=== PATIENT | male | born 1945 ===

== ENCOUNTER 2018-04-28 14:09 | Emergency (ER) | payer MEDICARE, BC ==
[2018-04-28] MEDS ORDERED: NS 0.9% 1000 ML* 1,000 ML IV ONE (14:50)
--- NOTE | 2018-04-28 14:50 | UC ---
Nausea/Vomiting/Diarrhea HPI - HPI Summary HPI Summary: This is a 72 yo male with IDDM who presents with c/o nausea and vomiting. Symptoms started yesterday morning. He was unable to tolerate anything by mouth most of the day yesterday. He had several episodes of vomiting. Some diarrhea yesterday, none today. No associated fever or abd pain. No rash. No cough or SOB. He reports his FBG was 76 g/dl this am. He brings his glucose log with him. FBG ~130-150 last 2 days, avg is between 80 and 90 g/dl. No recent changes to medications. His has not been acutely ill. - History of Current Complaint Chief Complaint: UCGI Stated Complaint: ABDOMINAL COMPLAINT, DIZZINESS Pain Intensity: 0 - Allergies/Home Medications Allergies/Adverse Reactions: Allergies Allergy/AdvReac Type Severity Reaction Status Date / Time No Known Allergies Allergy Verified 04/28/18 14:16 Home Medications: Home Medications Atenolol/Chlorthalidone [Atenolol/Chlorthalidone 50-25 mg-] 1 tab PO DAILY 04/28 [History Confirmed 04/28/18] Bicalutamide [Casodex] 1 tab PO DAILY 04/28/18 [History Confirmed 04/28/18] Insulin Glargine,Hum.rec.anlog [Lantus Solostar 5x3 ML PENS] 96 unit SQ [History] Metformin HCl [Metformin HCl ER] 500 mg PO QID 04/28/18 [History Confirmed 04/28] Olmesartan Medoxomil 04/28/18 [History] PMH/Surg Hx/FS Hx/Imm Hx Endocrine History: Diabetes - Surgical History Surgical History: Yes Surgery Procedure, Year, and Place: HERNIA , [facility] – [place], 2001 - Family History Known Family History: Positive: Diabetes - Social History Alcohol Use: None Substance Use Type: None Smoking Status (MU): Never Smoked Tobacco Review of Systems Constitutional: Fatigue Skin: Negative Eyes: Negative ENT: Negative Respiratory: Negative Cardiovascular: Negative Gastrointestinal: Vomiting, Diarrhea, Nausea Genitourinary: Negative Motor: Negative Neurovascular: Negative Musculoskeletal: Negative Neurological: Negative Psychological: Negative Is Patient Immunocompromised?: No All Other Systems Reviewed And Are Negative: Yes Physical Exam Triage Information Reviewed: Yes Appearance: Ill-Appearing - mildly Vital Signs: Initial Vital Signs Temp 97.7 F 04/28/18 14:11 Pulse 54 04/28/18 14:11 Resp 14 04/28/18 14:11 BP 132/50 04/28/18 14:11 Pulse Ox 98 04/28/18 14:11 Vital Signs Reviewed: Yes ENT: Positive: Other - mucus membranes tacky Neck exam: Normal Neck: Positive: Supple, Nontender Respiratory Exam: Normal Respiratory: Positive: Lungs clear Cardiovascular Exam: Normal Cardiovascular: Positive: RRR Abdomen Description: Positive: Nontender, Soft, Other: - BS hypoactive Neurological Exam: Normal Psychological Exam: Normal Skin Exam: Normal Diagnostics - Laboratory Diagnostic Studies Completed/Ordered: glucose finger stick 176 g/dl. orthostatic VS - positive (>20 mmHg drop from lying to sitting with increase 10 bpm HR) Re-Evaluation - Re-Evaluation First Eval Re-Evaluation Time: 16:00 Change: Improved Comment: completed 1L NS and received Zofran Naus/Vom/Diarrhea Course/Dx - Course Course Of Treatment: 72 yo male with IDDM who presents with c/o nausea and vomiting. Orthostatic hypotension noted. Gave 1L NS and Zofran in the clinic today. Symptoms likely due to viral gastroenteritis. Recommend symptomatic care, but if symptoms do not improve suggested that he proceed to the ER for further evaluation. - Differential Dx/Diagnosis Differential Diagnoses - Male: Hepatitis, Gastroenteritis (Viral), Cholecystitis Provider Diagnoses: Suspected viral gastroenteritis Condition At Discharge: Stable Discharge - Sign-Out/Discharge Documenting (check all that apply): Discharge/Admit/Transfer - Discharge Plan Condition: Stable Disposition: HOME Prescriptions: Ondansetron [Zofran Odt] 4 mg PO Q4H #20 tab Patient Education Materials: Gastroenteritis (DC) Referrals: Carlos Bosch MD [Primary Care Provider] - If Needed Additional Instructions: Instructions: 1. Use nausea medication as needed 2. If you continue to vomit, please proceed to the ER for further evaluation 3. Maintain soft, bland diet until your symptoms completed resolve - Billing Disposition and Condition Condition: STABLE Disposition: Home
[2018-04-28 14:53] VITALS: BP 112/39
[2018-04-28] MEDS ORDERED: Ondansetron INJ* 2 MG/ML VIAL IV ONE (15:00)
[2018-04-28] MEDS ORDERED: Ondansetron ODT TAB* 4 MG SL ONE (15:00)
[2018-04-28] MEDS ORDERED: Ondansetron ODT TAB* 4 MG PO ONE (15:05)
== END 2018-04-28 16:38 | disposition home or self-care (01) ==
LOC: UCEAST 14:09
DX: R11.2 Nausea with vomiting, unspecified (principal); R19.7 Diarrhea, unspecified; R53.83 Other fatigue; E11.9 Type 2 diabetes mellitus without complications; Z79.4 Long term (current) use of insulin; Z79.84 Long term (current) use of oral hypoglycemic drugs; Z83.3 Family history of diabetes mellitus
CPT/HCPCS: 96360; 99212; A9270-GY; G0463

== ENCOUNTER 2018-08-04 11:42 | Emergency (ER) | payer MEDICARE, BC ==
[2018-08-04 12:01] VITALS: BP 149/70
--- NOTE | 2018-08-04 12:35 | UC ---
Skin Complaint HPI - HPI Summary HPI Summary: 72 y/o male PMH + for DM presents with "bump" on head for 7 days, increasing in pain, redness, unsure of how originated. no allergies, no recent abx no fever , chills. - History of Current Complaint Chief Complaint: UCSkin Time Seen by Provider: 08/04/18 12:23 Stated Complaint: SKIN COMPLAINT Hx Obtained From: Patient Onset/Duration: Gradual Onset, Lasting Days Onset Severity: Moderate Current Severity: Moderate Pain Intensity: 8 Pain Scale Used: 0-10 Numeric Location: Discrete - left scalp - Allergy/Home Medications Allergies/Adverse Reactions: Allergies Allergy/AdvReac Type Severity Reaction Status Date / Time No Known Allergies Allergy Verified 08/04/18 12:01 Review of Systems Constitutional: Negative Skin: Other - small red lump left head ENT: Negative Respiratory: Negative Cardiovascular: Negative Is Patient Immunocompromised?: No All Other Systems Reviewed And Are Negative: Yes PMH/Surg Hx/FS Hx/Imm Hx Previously Healthy: Yes Endocrine History: Diabetes - Surgical History Surgical History: Yes Surgery Procedure, Year, and Place: HERNIA , [facility] – [place], 2001. 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 - Family History Known Family History: Positive: Diabetes - Social History Alcohol Use: None Substance Use Type: None Smoking Status (MU): Never Smoked Tobacco Physical Exam Triage Information Reviewed: Yes Appearance: Well-Appearing, No Pain Distress, Well-Nourished Vital Signs: Initial Vital Signs Temp 96.6 F 08/04/18 11:55 Pulse 59 08/04/18 11:55 Resp 18 08/04/18 11:55 BP 149/70 08/04/18 11:55 Pulse Ox 98 08/04/18 11:55 Vital Signs Reviewed: Yes Eyes: Positive: Conjunctiva Clear Neck: Positive: Supple, Nontender, No Lymphadenopathy Neurological Exam: Normal Psychological Exam: Normal Skin: Positive: Other - left scalp superior ~ 2cm fluctuant area, mild tender t palpation, scab noted over area, no induration, + minimal warm Course/Dx - Course Course Of Treatment: abx given, unable to I&D due to previously drained. - Differential Diagnoses - Skin Complaint Differential Diagnoses: Abscess - Diagnoses Provider Diagnoses: cellulitis Discharge - Sign-Out/Discharge Documenting (check all that apply): Patient Departure All imaging exams completed and their final reports reviewed: Yes - Discharge Plan Condition: Good Disposition: HOME Prescriptions: Cephalexin CAP* [Keflex CAP*] 500 mg PO TID #21 cap Patient Education Materials: Cellulitis (ED) Referrals: Carlos Bosch MD [Primary Care Provider] - Additional Instructions: - Continue taking antibiotics for 7 days three times a day - Follow up with primary doctor if no improvement within 2-3 days - Return to urgent care with fever, increased drainage, redness - Tylenol as needed for pain - Billing Disposition and Condition Condition: GOOD Disposition: Home
== END 2018-08-04 12:46 | disposition home or self-care (01) ==
LOC: UCEAST 11:42
DX: L03.811 Cellulitis of head [any part, except face] (principal)
CPT/HCPCS: 99212; G0463